=== PATIENT | male | born 1970 | race Caucasian/White ===

== ENCOUNTER 2020-08-31 17:17 | Emergency (ER) | payer OTHER, MEDICAID, SELFPAY ==
--- NOTE | ~2020-08-31 | CT_ITS ---
EXAMINATION: CT HEAD WITHOUT CONTRAST CLINICAL INFORMATION: Change in mental status COMPARISON: 10/02/2018 TECHNIQUE: Contiguous axial imaging was performed from the skull base to vertex without intravenous administration of contrast. This CT examination was performed using dose optimization techniques as appropriate, variously including the following: *Automated exposure control *Adjustment of mA and/or kV according to patient size (this includes techniques or standardized protocols for targeted exams where dose is matched to indication/reason for exam; i.e. extremities or head) *Use of iterative reconstruction technique DLP: 701 mGy-cm FINDINGS: No intra-axial or extra-axial hemorrhage. No acute territorial infarct. Mild generalized atrophy, unchanged. Preservation of hawthorne-white matter differentiation. Small left retrocerebellar arachnoid cyst. No mass, mass effect, or midline shift. No fracture. The mastoid air cells and visualized paranasal sinuses are clear. No change in the sclerotic appearance of the dens and C1-C2 articulation. CT/CT head/brain wo con IMPRESSION: No acute intracranial pathology.
--- NOTE | 2020-08-31 17:20 | PC.NURSE ---
patient awake/alert- yelling at staff to leave the room, belligerent towards staff as well as family member in the room , patient refusing to allow vitals or for staff to perform any testing at this time, provider is aware and was in the room as this was occuring.
--- NOTE | 2020-08-31 17:35 | PC.NURSE ---
pt to ct scan
--- NOTE | 2020-08-31 17:39 | ED_ITS ---
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 No fever was noticed no psychological issues were noticed patient had a frontal lobe infarct also last year when was in ICU. Other new deficit noticed patient seems to be very angry when interviewed and examined refusing to be examined MD complaint: altered mental status Onset (ago): hour(s) Timing confirmed by: family member Severity: moderate Related Data Allergies Allergy/AdvReac Type Severity Reaction Status Date / Time shellfish derived Allergy Severe ANAPHYLAXIS Verified 08/31/20 17:47 [SHELLFISH DERIVED] divalproex sodium Allergy Rash Verified 08/31/20 17:47 [From Depakote] haloperidol [From Haldol] Allergy Anaphylaxis Verified 08/31/20 17:47 Review of Systems Review of Systems: Yes Unobtainable due to mental status PMFSH Past Medical History Medical History Ankylosing spondylitis Avascular necrosis Febrile seizures 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 History of gastrostomy tube placement Pneumonia Surgical History S/P emergency tracheotomy for assistance in breathing Social History Social History Alcohol intake: former Smoking Status: Current every day smoker Use of substances other than those prescribed or required for medical reasons: No Advance Directives: No Advance Directives Information Provided: No Physical Exam Vital Signs: Vital Signs: Last Vital Signs Temp 98.0 F 08/31/20 19:56 Pulse 83 08/31/20 19:56 Resp 17 08/31/20 19:56 BP 119/73 08/31/20 19:56 Body Mass Index 43.9 Const: General: comfortable, no acute distress, well developed and combative Orientation/consciousness: patient oriented x3 Limitations: altered mental status HENMT: Head: Yes normocephalic and Yes atraumatic Ears: hearing grossly normal bilaterally Face and sinus: Yes normal facial exam Mouth: Normal oral and palatal mucosa present Eyes: General: appearance normal, both eyes and all related structures Conjunctivae: conjunctivae normal Sclerae: sclerae normal Pupils: Equal, round and reactive pupils present Neck: Neck: Yes normal visual inspection, Yes full ROM and Yes no lymphadenopathy Chest: Chest palpation & inspection: normal palpation of entire chest wall Resp: Effort & Inspection: normal respiratory effort Auscultation: clear to auscultation bilaterally, no crackles, no rales and no rhonchi Cardio: Jugular venous distension: no JVD Palpation: normal PMI Rate: regular rate Rhythm: regular rhythm Heart sounds: S1 normal heart sound present and S2 normal heart sound present Peripheral pulses: Peripheral pulses 2+ throughout GI: Inspection: Yes normal to inspection Palpation (GI): Soft to palpation Auscultation: normal bowel sounds Neuro: Other: Normal strength in upper extremities. 2/5 lower extremities Very agitated shouting at the staff refusing to cooperate General: patient oriented x3 and CN's II-XI intact bilaterally Cranial nerves: Yes Equal, round and reactive pupils present MDM - Altered Mental Status MDM Narrative Medical decision making narrative: Patient with acute agitation likely psychological. Clinically patient does not have any acute CVA. No new focal deficit noticed. CT scan of the head was negative for acute CVA. Lab workup was also normal normal WBC count normal lactic acid level did after receiving Ativan 2 mg patient is still as cooperative feeling much better will discharge patient home for acute anxiety and adjustment disorder Medical Records Attestation: I reviewed the patient's medical records. Lab Data Attestation: I reviewed the patient's lab results. Result diagrams: 08/31/20 18:33 08/31/20 18:33 Labs: Lab Results 08/31/20 08/31/20 08/31/20 Range/Units 18:12 18:33 18:33 WBC 8.1 (4.8-10.8) X10*3/uL RBC 4.64 (4.60-5.80) X10*6/uL Hgb 13.7 L (14.0-18.0) g/dl Hct 42.8 (42-52) % MCV 92.2 (80-98) fL MCH 29.5 (27.0-33.0) pg MCHC 32.0 (31.0-36.0) g/dl RDW 13.2 (11.0-16.0) % Plt Count 229 (160-400) X10*3/uL MPV 9.9 (9.4-12.4) fL Immature Gran % (Auto) 0.4 (0.0-0.4) % Neut % (Auto) 60.5 (45-73) % Lymph % (Auto) 27.7 (20-40) % Clare % (Auto) 8.7 (2-11) % Eos % (Auto) 2.3 (0-4) % Baso % (Auto) 0.4 (0-2) % Lymph # (Auto) 2.3 (1.2-4.9) X10*3/uL Clare # (Auto) 0.7 (0.1-1.2) X10*3/uL Eos # (Auto) 0.2 (0.0-0.4) X10*3/uL Baso # (Auto) 0.0 (0.0-0.2) X10*3/uL Abs Immat Gran (auto) 0.03 (0.00-0.03) X10*3/uL Absolute Neuts (auto) 4.9 (2.0-8.3) X10*3/uL Absolute Nucleated RBC 0.000 (0.0-0.012) X10*3/uL Nucleated RBC % (auto) 0.0 (0.0-0.2) /100WBC PT (10.8-13.0) SEC INR (0.9-1.1) APTT (24.1-38.0) SEC Sodium 139 (135-145) mmol/L Potassium 4.6 (3.3-5.1) mmol/L Chloride 100 (96-108) mmol/L Carbon Dioxide 30 H (22-29) mmol/L Anion Gap 14 (12-20) BUN 16 (9-16) mg/dL Creatinine 0.73 (0.5-1.4) mg/dL Estim Creat Clear Calc 119.8 Estimated GFR > 60 Random Glucose 145 H (60-115) mg/dL Lactic Acid (0.5-2.0) mmol/L Calcium 9.4 (8.4-10.2) mg/dL Total Bilirubin 0.5 (0.0-1.0) mg/dL Direct Bilirubin < 0.2 (0.0-0.5) mg/dL AST 12 (5-37) U/L ALT 15 (0-40) U/L Alkaline Phosphatase 130 H (39-117) U/L Total Protein 7.7 (6.5-8.0) g/dL Albumin 4.5 (3.5-5.0) g/dL Urine Color YELLOW Urine Appearance CLEAR Urine pH 5.5 (5.0-8.0) Ur Specific [place] 1.025 (1.005-1.025) Urine Protein NEG (NEG-TRACE) MG/DL Urine Glucose (UA) NEG (NEG) MG/DL Urine Ketones NEG (NEG) MG/DL Urine Blood NEG (NEG) Urine Nitrite NEG (NEG) Ur Leukocyte Esterase NEG (NEG) Urine RBC 0 (0) /HPF Urine WBC 0 (0-4) /HPF Ur Squamous Epith Cells NONE /LPF Urine Bacteria TRACE /LPF 08/31/20 08/31/20 Range/Units 18:33 18:34 WBC (4.8-10.8) X10*3/uL RBC (4.60-5.80) X10*6/uL Hgb (14.0-18.0) g/dl Hct (42-52) % MCV (80-98) fL MCH (27.0-33.0) pg MCHC (31.0-36.0) g/dl RDW (11.0-16.0) % Plt Count (160-400) X10*3/uL MPV (9.4-12.4) fL Immature Gran % (Auto) (0.0-0.4) % Neut % (Auto) (45-73) % Lymph % (Auto) (20-40) % Clare % (Auto) (2-11) % Eos % (Auto) (0-4) % Baso % (Auto) (0-2) % Lymph # (Auto) (1.2-4.9) X10*3/uL Clare # (Auto) (0.1-1.2) X10*3/uL Eos # (Auto) (0.0-0.4) X10*3/uL Baso # (Auto) (0.0-0.2) X10*3/uL Abs Immat Gran (auto) (0.00-0.03) X10*3/uL Absolute Neuts (auto) (2.0-8.3) X10*3/uL Absolute Nucleated RBC (0.0-0.012) X10*3/uL Nucleated RBC % (auto) (0.0-0.2) /100WBC PT 11.8 (10.8-13.0) SEC INR 1.0 (0.9-1.1) APTT 37.4 (24.1-38.0) SEC Sodium (135-145) mmol/L Potassium (3.3-5.1) mmol/L Chloride (96-108) mmol/L Carbon Dioxide (22-29) mmol/L Anion Gap (12-20) BUN (9-16) mg/dL Creatinine (0.5-1.4) mg/dL Estim Creat Clear Calc Estimated GFR Random Glucose (60-115) mg/dL Lactic Acid 1.9 (0.5-2.0) mmol/L Calcium (8.4-10.2) mg/dL Total Bilirubin (0.0-1.0) mg/dL Direct Bilirubin (0.0-0.5) mg/dL AST (5-37) U/L ALT (0-40) U/L Alkaline Phosphatase (39-117) U/L Total Protein (6.5-8.0) g/dL Albumin (3.5-5.0) g/dL Urine Color Urine Appearance Urine pH (5.0-8.0) Ur Specific [place] (1.005-1.025) Urine Protein (NEG-TRACE) MG/DL Urine Glucose (UA) (NEG) MG/DL Urine Ketones (NEG) MG/DL Urine Blood (NEG) Urine Nitrite (NEG) Ur Leukocyte Esterase (NEG) Urine RBC (0) /HPF Urine WBC (0-4) /HPF Ur Squamous Epith Cells /LPF Urine Bacteria /LPF Discharge Plan Discharge Clinical Impression: Mood disorder due to a general medical condition Patient Disposition: Home, Self-Care Instructions: Mood Disorders (ED) Additional Instructions: Follow-up with neurologist. Report to the ER if any concerns Interventions: ED Discharge Assessment Last Done: 08/31/20 20:58 Discharge Date/Time: 08/31/20 21:00
[2020-08-31 17:48] VITALS: BP 133/71; O2SAT 94; BMI 43.9
[2020-08-31] MEDS: LORazepam 2 MG/ML VIAL IM (18:02)
--- NOTE | 2020-08-31 18:12 | PC.NURSE ---
urine obtained with assistance
[2020-08-31 18:16] LABS: Glucose Urine UA NEG (NEG); Leukocyte Esterase Urine NEG (NEG); Nitrite Urine NEG (NEG); PH 5.5 (5.0-8.0); Specific Gravity - Urine 1.025 (1.005-1.025); Urine Blood NEG (NEG); Urine Ketones NEG (NEG); Urine Protein NEG (NEG-TRACE)
[2020-08-31 18:17] LABS: Appearance Urine CLEAR; Color Urine YELLOW
--- NOTE | 2020-08-31 18:20 | PC.NURSE ---
patient medicated wtih ativan per order, patient became agreeable to have labs drawn, at bedside, iv inserted, labs drawn
[2020-08-31 18:22] LABS: Bacteria Urine TRACE /LPF; RBC Urine 0 /HPF (0); WBC Urine 0 /HPF (0-4)
[2020-08-31 18:40] LABS: MANUAL DIFF FLAG NO
[2020-08-31 18:43] LABS: Basophils Percent Auto 0.4 % (0-2); Eosinophils Absolute Auto 0.2 X10*3/uL (0.0-0.4); Eosinophils Percent Auto 2.3 % (0-4); Hematocrit 42.8 % (42-52); Hemoglobin 13.7 g/dl (14.0-18.0); Imm Gran Abs Auto 0.03 X10*3/uL (0.00-0.03); Imm Gran Pct Auto 0.4 % (0.0-0.4); Lymphocytes Absolute Auto 2.3 X10*3/uL (1.2-4.9); Lymphocytes Percent Auto 27.7 % (20-40); Mean Corpuscular Hemoglobin 29.5 pg (27.0-33.0); Mean Corpuscular Volume 92.2 fL (80-98); Mean Platelet Volume 9.9 fL (9.4-12.4); Monocytes Absolute Auto 0.7 X10*3/uL (0.1-1.2); Monocytes Percent Auto 8.7 % (2-11); Neutrophils Absolute Auto 4.9 X10*3/uL (2.0-8.3); Neutrophils Percent Auto 60.5 % (45-73); Platelet Count 229 X10*3/uL (160-400); Red Blood Count 4.64 X10*6/uL (4.60-5.80); Red Cell Distribution Width 13.2 % (11.0-16.0); White Blood Count 8.1 X10*3/uL (4.8-10.8)
[2020-08-31 18:47] LABS: Prothrombin Time 11.8 SEC (10.8-13.0)
[2020-08-31 18:49] LABS: Partial Thromboplastin Time 37.4 SEC (24.1-38.0)
--- NOTE | 2020-08-31 19:00 | PC.NURSE ---
report given to rosa
[2020-08-31 19:07] LABS: Lactic Acid 1.9 mmol/L (0.5-2.0)
[2020-08-31 19:13] LABS: Alanine Aminotransferase 15 U/L (0-40); Albumin Level 4.5 g/dL (3.5-5.0); Alkaline Phosphatase 130 U/L (39-117); Anion Gap 14 (12-20); Aspartate Amino Transferase 12 U/L (5-37); Bilirubin Direct < 0.2 mg/dL (0.0-0.5); Bilirubin Total 0.5 mg/dL (0.0-1.0); Blood Urea Nitrogen 16 mg/dL (9-16); Calcium 9.4 mg/dL (8.4-10.2); Carbon Dioxide 30 mmol/L (22-29); Chloride 100 mmol/L (96-108); Creatinine Clr Calc Pharmacy 119.8; Estimated Glomerular Filt Rate > 60; Glucose Random 145 mg/dL (60-115); Potassium 4.6 mmol/L (3.3-5.1); Sodium 139 mmol/L (135-145); Total Protein 7.7 g/dL (6.5-8.0)
[2020-08-31 19:56] VITALS: BP 119/73; PULSE 83; RESP 17; TEMP 36.7
== END 2020-08-31 21:00 | disposition home or self-care (01) ==
PROVIDERS: Emergency Provider Internal Medicine
DX: F41.9 Anxiety disorder, unspecified (principal); F06.30 Mood disorder due to known physiological condition, unspecified; G82.20 Paraplegia, unspecified; G61.0 Guillain-Barre syndrome; F17.200 Nicotine dependence, unspecified, uncomplicated; Z93.1 Gastrostomy status
CPT/HCPCS: 36415; 70450; 80048; 80076; 81001; 83605; 85025; 85610; 85730; 87040; 96372; 99284; J2060

== ENCOUNTER 2021-04-04 18:31 | Emergency (ER) | payer OTHER, MEDICAID, SELFPAY ==
--- NOTE | ~2021-04-04 | XR_ITS ---
EXAMINATION: XR CHEST CLINICAL INFORMATION: Aspiration COMPARISON: CT head October 02, 2018 TECHNIQUE: Frontal portable view of the chest was obtained. 7:00 PM FINDINGS: No significant abnormality is noted involving the heart, lungs, mediastinum, bony thorax or soft tissues. XR/XR chest 1V IMPRESSION: Unremarkable examination.
[2021-04-04 18:36] VITALS: BP 98/64; PULSE 58; O2SAT 94
[2021-04-04 18:40] VITALS: BP 96/54; PULSE 55; RESP 18; TEMP 36.6; O2SAT 94; BMI 37.8
--- NOTE | 2021-04-04 18:48 | ED_ITS ---
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 Apparently patient was eating white bread and choked on it mouth and lips turn blue frothing for 30 seconds able to remove chunk of bread little gurgling in the back of the throat was still able to speak says that the it hurts but pieces large and gone down no vomiting at this time patient was saturating 94% at alf. Patient never had similar complaints in the past no chest pain no cough no fever Related Data Allergies Allergy/AdvReac Type Severity Reaction Status Date / Time shellfish derived Allergy Severe ANAPHYLAXIS Verified 08/31/20 17:47 [SHELLFISH DERIVED] divalproex sodium Allergy Rash Verified 08/31/20 17:47 [From Depakote] haloperidol [From Haldol] Allergy Anaphylaxis Verified 08/31/20 17:47 Review of Systems Review of Systems: Yes all other systems are reviewed and are negative [facility] Past Medical History Medical History Ankylosing spondylitis Avascular necrosis Febrile seizures 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 Oriented X3. No acute distress. Generalized muscle weakness with minimal activities of upper or lower extremity Eyes: No pallor or icterus ENT: Pharynx normal. Oral Mucosa moist Neck: Normal inspection. Neck supple. CVS: Normal heart rate and rhythm. Pulses normal. Respiratory: No respiratory distress. Equal air entry bilateral, no wheezing/rales/rhonchi Abdomen: Soft and nontender. Bowel sounds are present, no mass palpable, Skin: Skin warm and dry. Normal skin color. Normal skin turgor. Extremities: No lower extremity edema. No calf tenderness Neuro: Oriented X 3. Diffuse muscle weakness of extremities sensory intact Medical Decision Making MDM Narrative Medical decision making narrative: Patient's chest x-ray negative for any aspiration taking p.o. fluids , stable vitals, will discharge patient back to alf Discharge Plan Discharge Clinical Impression: Choking due to food in larynx Qualifiers: Encounter type: initial encounter Qualified Code(s): T17.320A - Food in larynx causing asphyxiation, initial encounter Patient Disposition: Xfer SNF Transfer Details: X-ray negative for any aspiration, vitals stable Instructions: Food Impaction (ED) Additional Instructions: Has small bites of food Report to the aniline press worker/ PCP if more frequent episodes of choking for further evaluation Discharge Date/Time: 04/04/21 21:00
== END 2021-04-04 21:00 | disposition skilled nursing facility (03) ==
PROVIDERS: Emergency Provider Internal Medicine; PCP Internal Medicine
DX: T17.220A Food in pharynx causing asphyxiation, initial encounter (principal); E11.9 Type 2 diabetes mellitus without complications; G61.0 Guillain-Barre syndrome; X58.XXXA Exposure to other specified factors, initial encounter; Y93.9 Activity, unspecified; Y92.9 Unspecified place or not applicable; Y99.9 Unspecified external cause status
CPT/HCPCS: 71045; 99282; 99283